=== PATIENT | female | born 1985 | race Caucasian/White ===

== ENCOUNTER 2017-04-24 18:05 | Inpatient (IN) | payer OTHER ==
--- NOTE | ~2017-04-24 | PA ---
Unit #: [id number] #: [id number] Patient: CHASTITY SOLORIO [id number] [facility] [address] [place] [address] [id number] MR#: [id number] NAME: CHASTITY SOLORIO ROOM: P203 Age: 31 Sex: F Admission Date: 04/24/2017 : 1985 Date of Assessment: 04/25/2017 Attending Physician: Juan Carrasco M.D. Admitting Physician: Juan Carrasco M.D. Primary Care Physician: Primary Care Physician No PSYCHIATRIC ASSESSMENT IDENTIFY INFORMATION The patient is a 31-year-old single white female, well known to this physician from previous admissions to this facility and [facility]. She is admitted with suicidal ideation and a recent relapse of alcohol and heroin abuse. INFORMANT(S) Patient, reliability is fair. CHIEF COMPLAINT None given. HISTORY OF PRESENT ILLNESS The patient is a 31-year-old single white female, admitted to the [address] [place] [address] after she had presented to this facility voicing positive suicidal ideation. the patient was reporting positive suicidal ideation with plans to step into traffic. She reports recent of her as the source of her distress. The patient also admits to a recent relapse of alcohol and heroin use. She has been off prescribed psychotropic medications for some time per her report. At the time of her last discharge from this facility Dr. Sorensen had prescribed Abilify 10 mg at bedtime for her. When seen today, the patient is noted to be somewhat elevated in mood. She does admit to a recent relapse. She is currently denying any suicidal or homicidal ideation, and is agreeable with reinitiation of medication. For a more complete history of present illness please refer to the previously dictated notes. PAST PSYCHIATRIC HISTORY Reviewed and no changes. PAST MEDICAL HISTORY Reviewed and no changes. MEDICATIONS None at the time of admission. ALLERGIES Xanax. FAMILY HISTORY Reviewed and no changes. Unit #: [id number] #: [id number] Patient: CHASTITY SOLORIO SOCIAL HISTORY Reviewed and no changes. MENTAL STATUS EXAM At this time, reveals the patient to be a well-developed, well-nourished white female, appearing her stated. She is in a state of some physical dishevelment. She is awake, alert, and oriented in all spheres. Her mood is a bit expansive. Her affect labile. Speech is generally relevant and coherent. There are no gross deficits to memory or cognition noted. Intelligence is judged to be in the average range based on fund of knowledge. The patient is generally cooperative during the interview. She is currently denying suicidal or homicidal ideation, or psychotic features. Judgment and insight appear to be somewhat impaired. ASSETS Motivation for change. LIABILITIES Lack of resources, ongoing substance use. DIAGNOSTIC IMPRESSION Morenci I: Bipolar disorder, manic phase. Opioid use disorder. Alcohol use disorder. HSV 1 and 2. TREATMENT PLAN The patient remains hospitalized for safety and stabilization, we will restart Abilify 10 mg at bedtime and this had previously been effective for the patient. Dr. Sorensen will assume care of the patient on Sunday if she is still here. ESTIMATED LENGTH OF STAY IN THE HOSPITAL Nsrj-al-lbuih days. Dictated by... Juan Carrasco M.D. MARIE/reji TD: 04/25/2017 13:18 JOB #: [id number] PSYCHIATRIC ASSESSMENT Page 1 of 1 X Juan Carrasco MD X PSYCHIATRIC ASSESSMENT
--- NOTE | ~2017-04-24 | HP ---
Unit #: [id number] #: [id number] Patient: RACHAEL SOLORIO [id number] [place] [address] [id number] MR#: [id number] NAME: RACHAEL SOLORIO ROOM: P203 Age: 31 Sex: F Admission Date: 04/24/2017 : 1985 Attending Physician: Juan Carrasco M.D. Admitting Physician: Juan Carrasco M.D. Primary Care Physician: Primary Care Physician No HISTORY AND PHYSICAL HISTORY OF PRESENT ILLNESS Rachael is a 31 year old admitted to [address] [place] [address] because of her continued drug use. She snorts heroin and methamphetamine. PAST MEDICAL HISTORY 1. Long history of illicit substance abuse to include heroin and methamphetamine. 2. History of herpes simplex. 3. Asthma. PAST SURGICAL HISTORY Bunionectomy. ALLERGIES Xanax (anaphylaxis). SOCIAL HISTORY Smokes 1 pack per day. Drinks alcohol on occasion. Has a history of illicit substance abuse to include methamphetamine, heroin, spice, cocaine and ecstasy. FAMILY HISTORY Medically noncontributory. REVIEW OF SYSTEMS CONSTITUTIONAL: No fever or chills. HEENT: Denies any sore throat, ear pain or runny nose. CARDIOVASCULAR: Denies chest pain, irregular heart rhythm or palpitations. CHEST: Denies shortness of breath or cough. No hemoptysis. GASTROINTESTINAL: Denies nausea, vomiting, diarrhea or chronic constipation. ENDOCRINE: Denies history of increased thirst or urination. No recent significant weight loss or gain. GENITOURINARY: Denies dysuria, frequency, or hematuria. SKIN: Denies any rashes. HEMATOLOGIC: Denies history of increased bleeding or bruising. MUSCULOSKELETAL: Denies any hot, swollen joints. No generalized muscle pain. NEUROLOGIC: Denies problems with vision or speech. No frequent, severe headaches. No numbness, tingling or weakness in any extremities. Denies loss of bladder or bowel control. CURRENT MEDICATIONS Unit #: [id number] #: [id number] Patient: RACHAEL SOLORIO Detox protocol. PHYSICAL EXAMINATION GENERAL: Alert, thin, in no apparent distress. VITAL SIGNS: Blood pressure 100/62, heart rate 100, respirations 16, temperature 98.6. WEIGHT: 140. HEIGHT: 5 feet 9 inches. SKIN: Warm and dry without rash or lesion. HEENT: Normocephalic. TMs not viewed. Oral and nasal passages clear. Conjunctivae clear. PERRLA. EOMs intact. NECK: Supple without lymphadenopathy or thyromegaly. HEART: Regular rate and rhythm without murmur. LUNGS: Clear. ABDOMEN: Soft, nontender. : Not done. EXTREMITIES: No evidence of cyanosis, clubbing or edema. Moves all without focal deficit. NEUROLOGICAL: Grossly within normal limits. Cranial Nerves: II: Visual mcgovern are intact. III, IV AND : Extraocular movements are intact. Pupils are equal, round and reactive to light. V: Facial sensation is grossly normal. VII: Facial movements and expression are normal. VIII: Auditory acuity grossly intact. IX, X: Uvula is midline. Phonation is normal. XI: Patient shrugs shoulders and turns head normally. XII: Tongue protrudes in the midline. Sensory and Motor Function: Sensory and motor sensation is grossly normal. Motor: moves all extremities well. Coordination: Gait is normal. Deep Tendon Reflexes: Intact. IMPRESSION Psychiatric admission. RECOMMENDATIONS PSYCHIATRIC: Per psychiatrist. MEDICAL: See no contraindication to participate in facility's activities. MEDICAL PROGNOSIS Good. MEDICAL CONDITION Stable. Dictated by... Roseline Costa PIvaAAlivia. for Nolberto Munoz/luzmaria TD: 04/25/2017 15:43 JOB #: [id number] Unit #: [id number] #: [id number] Patient: RACHAEL SOLORIO HISTORY AND PHYSICAL Page 1 of 1 X Roseline Costa X HISTORY AND PHYSICAL
--- NOTE | ~2017-04-24 | PN ---
Unit #: [id number] #: [id number] Patient: CHASTITY SOLORIO [id number] [facility] [address] [place] [address] [id number] I MR#: [id number] NAME: CHASTITY SOLORIO ROOM: P203 Age: 31 Sex: F Admission Date: 04/24/2017 : 1985 Attending Physician: Juan Carrasco M.D. Admitting Physician: Juan Carrasco M.D. Primary Care Physician: Primary Care Physician Manuela GORDON PROGRESS NOTES DATE 04/26/2017 DISCUSSION The patient is abed, resting comfortably today and offers no new complaints. Staff reports no management issues and states that the patient has been compliant with medications and wood routine thus far. Her participation within the therapeutic milieu has been poor. Dictated by... Juan Carrasco M.D. CB/jarrett TD: 04/26/2017 14:32 JOB #: [id number] EVAN YAN NOTES Page 1 of 1 X Juan Carrasco MD PROGRESS NOTE
--- NOTE | ~2017-04-24 | PN ---
Unit #: [id number] #: [id number] Patient: CHASTITY WHITE [id number] [facility] [address] [place] [address] [id number] MR#: [id number] NAME: CHASTITY WHITE ROOM: P203 Age: 31 Sex: F Admission Date: 04/24/2017 : 1985 Attending Physician: Hubert Sorensen M.D. Admitting Physician: Hubert Sorensen M.D. Primary Care Physician: Primary Care Physician Manuela YAN NOTES DATE OF SERVICE 04/27/2017 DISCUSSION Ms. White is a 31-year-old white female who was seen today. Chart was reviewed and case was discussed with staff. She appears to be doing better and appears to be coming out of the detox without any complications. She has been taking medications and tolerating them fairly well with no reported side effects. MENTAL STATUS EXAMINATION Young white female who is casually dressed with fair personal hygiene, appears to be in no acute distress or discomfort. She was awake and alert with intact orientation. Her mood is anxious with congruent affect. She denies any suicidal or homicidal ideations. Her insight and judgment remain slightly impaired. TREATMENT PLAN 1. We will continue her on her current treatment protocol. We will monitor her response to medications and make further adjustments as needed. 2. We will continue to follow up. Dictated by... Nolberto Burroughs/jarrett TD: 04/27/2017 09:26 JOB #: [id number] [facility] PROGRESS NOTES Page 1 of 1 X Hubert Sorensen MD PROGRESS NOTE
[2017-04-25 12:29] LABS: BASOPHIL% 0.4 % (0-2.5); EOSINOPHIL% 0.4 % (0.0-7.0); HEMATOCRIT 35.8 % (35.0-45.0); HEMOGLOBIN 12.2 gm/dL (12.0-16.0); LYMPHOCYTE# 1.5 X10e3 (1.0-3.5); LYMPHOCYTE% 16.8 % (17.0-45.0); MEAN CELL VOLUME 88.3 FL (83-96); MEAN PLATELET VOLUME 8.5 FL (6.5-11.5); MONOCYTE# 1.1 X10e3 (0-1.0); MONOCYTE% 11.9 % (3.0-12.0); NEUTROPHIL# 6.5 X10e3 (1.5-7.1); NEUTROPHIL% 70.5 % (40-75); PLATELET COUNT 244 X10e3 (140-420); RED BLOOD COUNT 4.05 X10e (3.90-5.30); RED CELL DISTRIBUTION WIDTH 14.8 % (11.0-15.5); WHITE BLOOD COUNT 9.2 X10e3 (4.0-10.5)
[2017-04-25 12:33] LABS: DIFF IND NO
[2017-04-25 12:38] LABS: URINE APPEARANCE CLEAR; URINE BILIRUBIN NEG (NEG); URINE BLOOD NEG (NEG); URINE COLOR DK YELLOW; URINE GLUCOSE NEG (NEG); URINE KETONE 2+ (NEG); URINE LEUKOCYTE ESTERASE NEG (NEG); URINE NITRATE NEG (NEG); URINE PH 5.5 (5-8); URINE PROTEIN TRACE (NEG); URINE SPECIFIC GRAVITY 1.037 (1.003-1.035); URINE UROBILINOGEN 0.2 MG/DL (NEG)
[2017-04-25 12:42] LABS: ALBUMIN SERUM 4.3 g/dL (3.5-5.0); BILIRUBIN,TOTAL 0.4 mg/dL (0.2-2.0); CALCIUM SERUM 9.6 mg/dL (8.4-10.2); CREATININE SERUM 0.5 mg/dL (0.6-1.4); POTASSIUM 3.7 mmol/L (3.5-5.1)
[2017-04-25 12:54] LABS: AMPHETAMINE NEG (NEG); BARBITURATES NEG (NEG); BENZODIAZEPINES POS (NEG); COCAINE NEG (NEG); MARIJUANA NEG (NEG); OPIATES POS (NEG); TRICYCLIC ANTIDEPRESSANTS NEG (NEG); U METHADONE NEG (NEG)
== END 2017-04-27 13:30 | disposition home or self-care (01) | DRG 885 ==
LOC: P2S 20:13
PROVIDERS: Specialist
DX: F31.9 Bipolar disorder, unspecified (principal); F11.10 Opioid abuse, uncomplicated; F10.10 Alcohol abuse, uncomplicated; Z88.8 Allergy status to other drugs, medicaments and biological substances; F17.210 Nicotine dependence, cigarettes, uncomplicated
CPT/HCPCS: 80053; 80307; 81003; 85025